=== PATIENT | male | born 1955 | race Caucasian/White ===

== ENCOUNTER 2017-08-15 13:05 | Inpatient (IN) | payer MEDICARE, OTHER ==
[~2017-08-15] VITALS: Ht 182.9 cm; Wt 107.0 kg
[2017-08-15] MEDS ORDERED: hydrALAzine 20 MG/ML, 1ML ONE (13:53)
[2017-08-15] MEDS ORDERED: SODIUM CHLORIDE 0.9% 1,000ML IVBOLUS ONE (14:00)
[2017-08-15] MEDS ORDERED: SODIUM CHLORIDE FLUSH 10ML SYR IVF ONE (14:00)
[2017-08-15] MEDS ORDERED: hydrALAzine 20 MG/ML, 1ML IV ONE (14:00)
[2017-08-15 14:16] LABS: HEMATOCRIT 44.9 % (39.2-51.8); HEMOGLOBIN 15.2 g/dL (13.7-18.0); WHITE BLOOD COUNT 10.6 x10^3/uL (3.4-10)
[2017-08-15 14:30] LABS: ASPARTATE AMINO TRANSFERASE 68 U/L (15-37); BLOOD UREA NITROGEN 14 mg/dL (7-18)
[2017-08-15 14:36] LABS: IS PT STATUS REG ER OR PRE ER? YES
[2017-08-15] MEDS ORDERED: CEFTAROLINE 600 MG in SODIUM CHLORIDE 0.9% 100 ML IV ONE (15:00)
[2017-08-15] MEDS ORDERED: POTASSIUM CHLORIDE 20 MEQ TAB.ER.PRT ONE (15:08)
[2017-08-15] MEDS ORDERED: POTASSIUM CHLORIDE 20 MEQ TAB.ER.PRT PO ONE (15:30)
[2017-08-15] MEDS ORDERED: VANCOMYCIN PER PHARMACY MC PRN (17:00)
[2017-08-15] MEDS ORDERED: PHARMACOKINETIC MONITORING MC PRN (17:00)
[2017-08-15] MEDS: SODIUM CHLORIDE 0.9% 1,000 ML IV SCH (17:17)
[2017-08-15] MEDS: AMPICILLIN/SULBACTAM 3 GM in SODIUM CHLORIDE 0.9% 100 ML IV SCH (17:17)
[2017-08-15 17:30] VITALS: BP 161/89
[2017-08-15 19:12] VITALS: BP 174/83
[2017-08-15] MEDS ORDERED: ONDANSETRON ODT 4 MG PO PRN (19:30)
[2017-08-15] MEDS ORDERED: ONDANSETRON 2MG/ML, 2ML IVPush PRN (19:30)
[2017-08-15] MEDS ORDERED: morphine SULFATE 10 MG/ML, 1ML IVPush PRN (19:30)
[2017-08-15] MEDS ORDERED: ACETAMINOPHEN 325 MG TABLET PO PRN (19:30)
[2017-08-15] MEDS ORDERED: POLYETHYLENE GLYCOL 17 GM PACKET PO PRN (19:30)
[2017-08-15] MEDS ORDERED: DOCUSATE 100 MG CAPSULE PO PRN (19:30)
[2017-08-15] MEDS ORDERED: BISACODYL 10 MG SUPP PR PRN (19:30)
[2017-08-15] MEDS ORDERED: LORazepam 1MG TABLET PO PRN (20:00)
[2017-08-15] MEDS: ENOXAPARIN 40 MG/0.4 ML SQ SCH (21:21)
[2017-08-15] MEDS: VANCOMYCIN 2,000 MG in SODIUM CHLORIDE 0.9% 500 ML IV SCH (21:21)
[2017-08-15 21:58] VITALS: BP 132/70
[2017-08-16 01:52] VITALS: BP 170/85
[2017-08-16] MEDS ORDERED: CEFTAROLINE 600 MG in SODIUM CHLORIDE 0.9% 100 ML IV SCH (03:30)
[2017-08-16] MEDS: SODIUM CHLORIDE 0.9% 1,000 ML IV SCH ×3 (03:52→20:53)
[2017-08-16 05:06] LABS: HEMATOCRIT 39.4 % (39.2-51.8); HEMOGLOBIN 13.5 g/dL (13.7-18.0); WHITE BLOOD COUNT 7.6 x10^3/uL (3.4-10)
[2017-08-16 05:33] LABS: ASPARTATE AMINO TRANSFERASE 45 U/L (15-37); BLOOD UREA NITROGEN 10 mg/dL (7-18)
[2017-08-16] MEDS: AMPICILLIN/SULBACTAM 3 GM in SODIUM CHLORIDE 0.9% 100 ML IV SCH ×4 (05:34→17:38)
[2017-08-16 07:47] VITALS: BP 198/98
[2017-08-16] MEDS: hydrALAzine 20 MG/ML, 1ML IVPush PRN (08:03)
[2017-08-16] MEDS: NICOTINE 21 MG/24 HR PATCH.TD24 TD SCH (09:00)
[2017-08-16] MEDS: THIAMINE 100MG TABLET PO SCH (09:04)
[2017-08-16] MEDS: FOLIC ACID 1 MG TABLET PO SCH (09:04)
[2017-08-16] MEDS: MULTIVITAMIN 1 TABLET PO SCH (09:04)
[2017-08-16] MEDS: POTASSIUM CHLORIDE 20 MEQ TAB.ER.PRT PO SCH ×2 (10:59→17:38)
[2017-08-16] MEDS: LISINOPRIL 10 MG TABLET PO SCH ×2 (11:00→20:53)
[2017-08-16 14:00] VITALS: BP 192/94
[2017-08-16] MEDS: LABETALOL 5MG/ML, 20ML IVPush PRN (15:18)
[2017-08-16] MEDS: VANCOMYCIN 2,000 MG in SODIUM CHLORIDE 0.9% 500 ML IV SCH (15:18)
[2017-08-16 20:00] VITALS: BP 175/91
[2017-08-16] MEDS: ENOXAPARIN 40 MG/0.4 ML SQ SCH (20:53)
[2017-08-17] MEDS: AMPICILLIN/SULBACTAM 3 GM in SODIUM CHLORIDE 0.9% 100 ML IV SCH ×4 (00:52→18:21)
[2017-08-17 03:00] VITALS: BP 176/100
[2017-08-17 04:53] LABS: HEMATOCRIT 39.3 % (39.2-51.8); HEMOGLOBIN 13.1 g/dL (13.7-18.0); WHITE BLOOD COUNT 7.8 x10^3/uL (3.4-10)
[2017-08-17 05:04] LABS: BLOOD UREA NITROGEN 10 mg/dL (7-18)
[2017-08-17] MEDS: SODIUM CHLORIDE 0.9% 1,000 ML IV SCH (05:15)
[2017-08-17] MEDS: LABETALOL 5MG/ML, 20ML IVPush PRN ×2 (05:16→11:28)
[2017-08-17 07:15] VITALS: BP 210/99
[2017-08-17] MEDS: hydrALAzine 20 MG/ML, 1ML IVPush PRN (07:30)
[2017-08-17] MEDS: NICOTINE 21 MG/24 HR PATCH.TD24 TD SCH (09:00)
[2017-08-17 09:05] VITALS: BP 194/107
[2017-08-17] MEDS: FOLIC ACID 1 MG TABLET PO SCH (09:28)
[2017-08-17] MEDS: MULTIVITAMIN 1 TABLET PO SCH (09:28)
[2017-08-17] MEDS: LISINOPRIL 10 MG TABLET PO SCH (09:28)
[2017-08-17] MEDS: THIAMINE 100MG TABLET PO SCH (09:28)
[2017-08-17] MEDS: VANCOMYCIN 2,000 MG in SODIUM CHLORIDE 0.9% 500 ML IV SCH (09:28)
[2017-08-17 12:35] VITALS: BP 198/100
[2017-08-17] MEDS ORDERED: LISINOPRIL 10 MG TABLET PO STA (12:39)
[2017-08-17] MEDS: hydrALAzine 20 MG/ML, 1ML IV PRN (14:37)
[2017-08-17 15:32] VITALS: BP 166/76
[2017-08-17] MEDS ORDERED: NITROGLYCERIN 0.4 MG BOTTLE (25 TABS) SL PRN (16:30)
[2017-08-17] MEDS ORDERED: NITROGLYCERIN 0.4 MG/SPRAY SL PRN (16:30)
[2017-08-17] MEDS: METOPROLOL TARTRATE 25 MG TABLET PO SCH ×2 (16:30→18:20)
[2017-08-17 16:33] LABS: IS PT STATUS REG ER OR PRE ER? NO
[2017-08-17] MEDS: ASPIRIN 81 MG TABLET EC PO SCH (18:20)
[2017-08-17 20:00] VITALS: BP 173/86
[2017-08-17] MEDS: LISINOPRIL 20 MG TABLET PO SCH (21:00)
[2017-08-17] MEDS: ENOXAPARIN 40 MG/0.4 ML SQ SCH (21:02)
[2017-08-17 22:14] LABS: IS PT STATUS REG ER OR PRE ER? NO
[2017-08-18] MEDS: AMPICILLIN/SULBACTAM 3 GM in SODIUM CHLORIDE 0.9% 100 ML IV SCH ×4 (00:24→19:46)
[2017-08-18 03:00] VITALS: BP 205/106
[2017-08-18] MEDS: VANCOMYCIN 2,000 MG in SODIUM CHLORIDE 0.9% 500 ML IV SCH (03:10)
[2017-08-18 03:11] LABS: HEMATOCRIT 38.2 % (39.2-51.8); WHITE BLOOD COUNT 8.2 x10^3/uL (3.4-10)
[2017-08-18] MEDS: LABETALOL 5MG/ML, 20ML IVPush PRN (03:12)
[2017-08-18 03:18] LABS: BLOOD UREA NITROGEN 10 mg/dL (7-18)
[2017-08-18 03:23] LABS: IS PT STATUS REG ER OR PRE ER? NO
[2017-08-18] MEDS: METOPROLOL TARTRATE 25 MG TABLET PO SCH ×2 (06:09→19:14)
[2017-08-18 06:10] VITALS: BP 205/101
[2017-08-18] MEDS: ASPIRIN 81 MG TABLET EC PO SCH (06:10)
[2017-08-18] MEDS: hydrALAzine 20 MG/ML, 1ML IV PRN ×2 (06:17→12:24)
[2017-08-18 06:35] VITALS: BP 173/86
[2017-08-18 08:44] VITALS: BP 178/92
[2017-08-18] MEDS: LISINOPRIL 20 MG TABLET PO SCH ×2 (08:45→21:10)
[2017-08-18] MEDS: NICOTINE 21 MG/24 HR PATCH.TD24 TD SCH (09:00)
[2017-08-18] MEDS ORDERED: REGADENOSON 0.4 MG/5 ML SYRINGE ONE (09:02)
[2017-08-18] MEDS: THIAMINE 100MG TABLET PO SCH (11:35)
[2017-08-18] MEDS: FOLIC ACID 1 MG TABLET PO SCH (11:35)
[2017-08-18] MEDS: MULTIVITAMIN 1 TABLET PO SCH (11:35)
[2017-08-18 12:08] LABS: HEMATOCRIT 41.8 % (39.2-51.8); HEMOGLOBIN 14.1 g/dL (13.7-18.0); WHITE BLOOD COUNT 8.5 x10^3/uL (3.4-10)
[2017-08-18 12:18] LABS: BLOOD UREA NITROGEN 9 mg/dL (7-18)
[2017-08-18 13:21] VITALS: BP 172/85
[2017-08-18 20:00] VITALS: BP 169/87
[2017-08-18] MEDS: ENOXAPARIN 40 MG/0.4 ML SQ SCH (21:10)
[2017-08-18] MEDS: ATORVASTATIN 10 MG TABLET PO SCH (21:10)
[2017-08-19] VITALS (9 sets, daily range): BP systolic 149–195; BP diastolic 84–107
[2017-08-19] MEDS: AMPICILLIN/SULBACTAM 3 GM in SODIUM CHLORIDE 0.9% 100 ML IV SCH ×4 (00:53→22:38)
[2017-08-19] MEDS: METOPROLOL TARTRATE 25 MG TABLET PO SCH (05:14)
[2017-08-19] MEDS: ASPIRIN 81 MG TABLET EC PO SCH (05:14)
[2017-08-19] MEDS: LABETALOL 5MG/ML, 20ML IVPush PRN ×2 (05:15→21:27)
[2017-08-19] MEDS: hydrALAzine 20 MG/ML, 1ML IV PRN ×3 (08:23→22:39)
[2017-08-19] MEDS ORDERED: METOPROLOL TARTRATE 25 MG TABLET PO ONE (08:30)
[2017-08-19] MEDS: NICOTINE 21 MG/24 HR PATCH.TD24 TD SCH (09:00)
[2017-08-19] MEDS: LISINOPRIL 20 MG TABLET PO SCH ×2 (09:34→21:27)
[2017-08-19] MEDS: MULTIVITAMIN 1 TABLET PO SCH (09:35)
[2017-08-19] MEDS: FOLIC ACID 1 MG TABLET PO SCH (09:35)
[2017-08-19] MEDS: THIAMINE 100MG TABLET PO SCH (09:35)
[2017-08-19] MEDS: METOPROLOL TARTRATE 50 MG TABLET PO SCH (18:13)
[2017-08-19] MEDS: ENOXAPARIN 40 MG/0.4 ML SQ SCH (21:27)
[2017-08-19] MEDS: ATORVASTATIN 10 MG TABLET PO SCH (22:39)
[2017-08-20] VITALS (9 sets, daily range): BP systolic 128–192; BP diastolic 71–107
[2017-08-20] MEDS: LABETALOL 5MG/ML, 20ML IVPush PRN (03:31)
[2017-08-20] MEDS: hydrALAzine 20 MG/ML, 1ML IV PRN ×3 (03:31→18:03)
[2017-08-20] MEDS: AMPICILLIN/SULBACTAM 3 GM in SODIUM CHLORIDE 0.9% 100 ML IV SCH ×2 (04:05→11:06)
[2017-08-20] MEDS: METOPROLOL TARTRATE 50 MG TABLET PO SCH ×2 (05:59→18:00)
[2017-08-20] MEDS: ASPIRIN 81 MG TABLET EC PO SCH (05:59)
[2017-08-20] MEDS ORDERED: FUROSEMIDE 40 MG/4 ML IV ONE (07:30)
[2017-08-20] MEDS ORDERED: POTASSIUM CHLORIDE 20 MEQ TAB.ER.PRT PO ONE (08:00)
[2017-08-20] MEDS: AMLODIPINE 5 MG TABLET PO SCH (09:00)
[2017-08-20] MEDS: NICOTINE 21 MG/24 HR PATCH.TD24 TD SCH (09:00)
[2017-08-20] MEDS: MULTIVITAMIN 1 TABLET PO SCH (09:17)
[2017-08-20] MEDS: FOLIC ACID 1 MG TABLET PO SCH (09:18)
[2017-08-20] MEDS: THIAMINE 100MG TABLET PO SCH (09:18)
[2017-08-20] MEDS: LISINOPRIL 20 MG TABLET PO SCH ×2 (09:18→20:54)
[2017-08-20] MEDS: LACTOBACILLUS CHEW TABLET PO SCH ×2 (18:04→20:55)
[2017-08-20] MEDS: ENOXAPARIN 40 MG/0.4 ML SQ SCH (20:54)
[2017-08-20] MEDS: ATORVASTATIN 10 MG TABLET PO SCH (20:55)
[2017-08-20] MEDS: AMOXICILLIN/CLAV 875-125MG TABLET PO SCH (20:55)
[2017-08-21] VITALS (7 sets, daily range): BP systolic 143–188; BP diastolic 85–95
[2017-08-21] MEDS: ASPIRIN 81 MG TABLET EC PO SCH (05:28)
[2017-08-21] MEDS: METOPROLOL TARTRATE 50 MG TABLET PO SCH ×2 (05:28→17:55)
[2017-08-21] MEDS: LACTOBACILLUS CHEW TABLET PO SCH ×4 (05:28→22:06)
[2017-08-21 06:18] LABS: BLOOD UREA NITROGEN 15 mg/dL (7-18)
[2017-08-21] MEDS: THIAMINE 100MG TABLET PO SCH (08:34)
[2017-08-21] MEDS: MULTIVITAMIN 1 TABLET PO SCH (08:35)
[2017-08-21] MEDS: LISINOPRIL 20 MG TABLET PO SCH ×2 (08:35→22:06)
[2017-08-21] MEDS: FOLIC ACID 1 MG TABLET PO SCH (08:36)
[2017-08-21] MEDS: NICOTINE 21 MG/24 HR PATCH.TD24 TD SCH (08:36)
[2017-08-21] MEDS: AMOXICILLIN/CLAV 875-125MG TABLET PO SCH ×2 (08:36→22:07)
[2017-08-21] MEDS: AMLODIPINE 5 MG TABLET PO SCH (08:38)
[2017-08-21] MEDS: CHLORTHALIDONE 25 MG TABLET PO SCH (16:17)
[2017-08-21] MEDS: ATORVASTATIN 10 MG TABLET PO SCH (22:06)
[2017-08-21] MEDS: ENOXAPARIN 40 MG/0.4 ML SQ SCH (22:06)
[2017-08-22] VITALS (10 sets, daily range): BP systolic 134–178; BP diastolic 78–98
[2017-08-22] MEDS: LACTOBACILLUS CHEW TABLET PO SCH ×4 (04:55→23:01)
[2017-08-22] MEDS: METOPROLOL TARTRATE 50 MG TABLET PO SCH ×2 (04:55→17:05)
[2017-08-22] MEDS: ASPIRIN 81 MG TABLET EC PO SCH (04:55)
[2017-08-22] MEDS: FOLIC ACID 1 MG TABLET PO SCH (08:05)
[2017-08-22] MEDS: AMOXICILLIN/CLAV 875-125MG TABLET PO SCH ×2 (08:05→23:01)
[2017-08-22] MEDS: MULTIVITAMIN 1 TABLET PO SCH (08:05)
[2017-08-22] MEDS: THIAMINE 100MG TABLET PO SCH (08:05)
[2017-08-22] MEDS: LISINOPRIL 20 MG TABLET PO SCH ×2 (08:05→23:02)
[2017-08-22] MEDS: CHLORTHALIDONE 25 MG TABLET PO SCH (08:05)
[2017-08-22] MEDS: AMLODIPINE 5 MG TABLET PO SCH (08:06)
[2017-08-22] MEDS: NICOTINE 21 MG/24 HR PATCH.TD24 TD SCH (08:06)
[2017-08-22] MEDS ORDERED: POLYETHYLENE GLYCOL 17 GM PACKET PO PRN (18:30)
[2017-08-22] MEDS ORDERED: ONDANSETRON 2MG/ML, 2ML IVPush PRN (18:30)
[2017-08-22] MEDS ORDERED: BISACODYL 10 MG SUPP PR PRN (18:30)
[2017-08-22] MEDS ORDERED: NITROGLYCERIN 0.4 MG BOTTLE (25 TABS) SL PRN (18:30)
[2017-08-22] MEDS ORDERED: ACETAMINOPHEN 325 MG TABLET PO PRN (18:30)
[2017-08-22] MEDS ORDERED: DOCUSATE 100 MG CAPSULE PO PRN (18:30)
[2017-08-22] MEDS ORDERED: NITROGLYCERIN 0.4 MG/SPRAY SL PRN (18:30)
[2017-08-22] MEDS ORDERED: ONDANSETRON ODT 4 MG PO PRN (18:30)
[2017-08-22] MEDS: ENOXAPARIN 40 MG/0.4 ML SQ SCH (22:45)
[2017-08-22] MEDS: ATORVASTATIN 10 MG TABLET PO SCH (23:02)
[2017-08-23 02:33] VITALS: BP 165/94
[2017-08-23] MEDS: LACTOBACILLUS CHEW TABLET PO SCH ×2 (05:11→12:29)
[2017-08-23 05:54] VITALS: BP 175/97
[2017-08-23 05:55] VITALS: BP 177/98
[2017-08-23] MEDS: METOPROLOL TARTRATE 50 MG TABLET PO SCH (05:58)
[2017-08-23 06:56] VITALS: BP 156/90
[2017-08-23] MEDS ORDERED: CHLORTHALIDONE 25 MG TABLET PO SCH (09:00)
[2017-08-23] MEDS: NICOTINE 21 MG/24 HR PATCH.TD24 TD SCH (09:00)
[2017-08-23] MEDS: THIAMINE 100MG TABLET PO SCH (09:09)
[2017-08-23] MEDS: FOLIC ACID 1 MG TABLET PO SCH (09:09)
[2017-08-23] MEDS: AMLODIPINE 5 MG TABLET PO SCH (09:09)
[2017-08-23] MEDS: LISINOPRIL 20 MG TABLET PO SCH (09:09)
[2017-08-23] MEDS: ASPIRIN 81 MG TABLET EC PO SCH (09:09)
[2017-08-23] MEDS: AMOXICILLIN/CLAV 875-125MG TABLET PO SCH (09:10)
[2017-08-23] MEDS: MULTIVITAMIN 1 TABLET PO SCH (09:10)
[2017-08-23] MEDS ORDERED: ATOR10TA9 PO (12:14)
[2017-08-23] MEDS ORDERED: METO50TA82 PO (12:14)
[2017-08-23] MEDS ORDERED: CHLO25TA PO (12:14)
[2017-08-23] MEDS ORDERED: FOLI-17 PO (12:14)
[2017-08-23] MEDS ORDERED: ACID1TAB7 PO (12:14)
[2017-08-23] MEDS ORDERED: LISI-170 PO (12:14)
[2017-08-23] MEDS ORDERED: THIA100T6 PO (12:14)
[2017-08-23] MEDS ORDERED: ASPI-621 PO (12:14)
[2017-08-23] MEDS ORDERED: AMLO5TAB2 PO (12:14)
[2017-08-23] MEDS ORDERED: AMOX1TAB12 PO (12:14)
[2017-08-23] MEDS ORDERED: MULT1TAB60 PO (12:14)
[2017-08-23 13:13] VITALS: BP 154/86
[2017-08-23 13:43] VITALS: BP 121/74
== END 2017-08-23 14:23 | disposition home or self-care (01) | DRG 872 ==
LOC: ED 13:33 → EDIP 14:57 → 4EST 15:59 → 4NOR 08-22 18:01 → DCLOUNGE 08-23 13:59
PROVIDERS: ADMIT Internal Medicine; ATTEND Internal Medicine
DX: A41.9 Sepsis, unspecified organism (principal); M62.82 Rhabdomyolysis; I11.9 Hypertensive heart disease without heart failure; E44.1 Mild protein-calorie malnutrition; L03.116 Cellulitis of left lower limb; E87.6 Hypokalemia; I16.0 Hypertensive urgency; I25.10 Atherosclerotic heart disease of native coronary artery without angina pectoris; Z66 Do not resuscitate; Z72.0 Tobacco use
CPT/HCPCS: 36415; 71010; 78452; 80048; 80053; 80061; 80202; 81001; 82550; 83605; 83735; 83880; 84484; 85025; 87040; 93005; 93017; 93306; 93975; 96361; 96374; J0295; J0712; J1650; J1940; J2785; J3370; A9502; C9898; J0360; J2270; J7030; J7040

== ENCOUNTER → 2017-09-30 | Outpatient (CLI) | payer OTHER ==
[~2017-09-30] MED LIST: ACID1TAB7 PO; AMLO5TAB2 PO; AMOX1TAB12 PO; ASPI-621 PO; ATOR10TA9 PO; CHLO25TA PO; FOLI-17 PO; LISI-170 PO; METO50TA82 PO; MULT1TAB60 PO; OMNIPAQUE 350 MG/ML, 100ML BOTTLE ONE; THIA100T6 PO
== END | disposition home or self-care (01) ==
LOC: CFH 13:02
PROVIDERS: ATTEND Internal Medicine Cardiovascular Disease
DX: K76.89 Other specified diseases of liver (principal); J98.4 Other disorders of lung
CPT/HCPCS: 71275; Q9967